=== PATIENT | male | born 1955 | race Caucasian/White ===

== ENCOUNTER → 2017-12-26 | Outpatient (CLI) | payer OTHER ==
--- NOTE | 2017-12-26 17:57 | Diagnostic Imaging Report ---
PROCEDURE: US Bilateral lower extremity arterial. TECHNIQUE: Multiple real-time grayscale images are obtained through both lower extremity arterial systems with color Doppler imaging and color Doppler spectral analysis. 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 FINDINGS: There is a right femoropopliteal graft in place with stents noted proximally and distally within the graft. There is some velocity elevation in the proximal portion of the graft at the stent reaching 264 cm/s. No other significant velocity elevations on the right are identified. There are triphasic waveforms in the right common femoral artery and primarily biphasic and triphasic waveforms in the femoropopliteal graft. Monophasic flow at the ankle is seen within the dorsalis pedis and posterior tibial artery. On the left, there are triphasic waveforms in the common femoral artery which does show some mild velocity elevation at 197 cm/s. There is monophasic flow throughout the left SFA, popliteal, as well as tibial vessels below the knee. There is a high-grade stenosis in the distal left SFA reaching 411 cm/s. No occlusion is identified. IMPRESSION: 1. Right femoropopliteal graft appears to be patent. There is some velocity elevation in the proximal portion of the graft near the stent, but no occlusion is seen. Monophasic flow at the ankle on the right is seen. 2. Monophasic flow in the left lower extremity from the common femoral artery distally. There appears to be a high-grade stenosis of the distal left SFA but no complete occlusion is seen. Dictated by: Dictated on workstation # [id number]
--- NOTE | 2017-12-26 18:53 | Diagnostic Imaging Report ---
INDICATION: Occluded left popliteal. EXAMINATION: Ankle-brachial indices were performed, bilaterally. IMPRESSION: Ankle-brachial index on the right is 0.99 and on the left is 0.57. Dictated by: Dictated on workstation # [id number]
== END ==
LOC: RAD 12:52 → EDSEX 12:52
PROVIDERS: ATTEND General Practice
DX: Z02.71 Encounter for disability determination (principal); Z95.828 Presence of other vascular implants and grafts
CPT/HCPCS: 93922; 93925